=== PATIENT | male | born 1955 | race Caucasian/White ===

== ENCOUNTER 2016-08-04 07:34 | Emergency (ER) | payer OTHER ==
[~2016-08-04] VITALS: Ht 175.3 cm; Wt 89.4 kg
[~2016-08-04 07:34] MED LIST: ALPR-229 PO; AMIO200T33 PO; ASP81EC PO; CLON0.1T PO; FENO130C6 OR; FURO20TA3 PO; GAB300C PO; GLYB2.5T76 PO; HYDR-4072 PO; HYDR12.56 PO; METO-169 PO; OMEP20CA5 PO; PIOG15TA25 PO; POTA10TA51 PO; ZOLP10TA PO
[2016-08-04] MEDS ORDERED: SODIUM CHLORIDE 0.9% 1,000 ML IV ONE ×2 (07:43→09:33)
[2016-08-04 08:05] LABS: Basophils # (auto) 0 uL; Basophils % (auto) 0.2 % (0.0-2.0); Eosinophils # (auto) 0 uL; Eosinophils % (auto) 0.1 % (0.0-7.0); Hematocrit 43.3 % (41.0-53.0); Hemoglobin 14.6 g/dL (13.5-17.5); Lymphocytes # (auto) 0.6 uL; Lymphocytes % (auto) 4.5 % (10.0-50.0); Mean Corpuscular Hemoglobin 29.5 pg (28.0-32.0); Mean Corpuscular Hgb Conc. 33.7 g/dL (32.0-36.0); Mean Corpuscular Volume 87.6 fL (80.0-100.0); Mean Platelet Volume 9.3 fL (7.4-10.4); Monocytes # (auto) 1.1 uL; Monocytes % (auto) 8.8 % (0.0-12.0); Neutrophils # (auto) 11.1 uL; Neutrophils % (auto) 86.4 % (37.0-80.0); Platelet Count (auto) 250 10^3/uL (140-450); Red Cell Distribution Width 14.1 % (11.6-16.0); White Blood Cell 12.8 10^3/uL (4.4-10.8)
[2016-08-04] MEDS ORDERED: HYDROmorphone HCL 2 MG/ML VL IV ONE (08:15)
[2016-08-04] MEDS ORDERED: ONDANSETRON HCL 4 MG/2 ML VIAL IV ONE (08:15)
[2016-08-04 08:39] LABS: BUN/Creatinine Ratio 12.2; Bilirubin, Total 0.7 mg/dL (0.2-1.0); Calcium 8.4 mg/dL (8.5-10.1); Potassium 3.6 mmol/L (3.5-5.1); Total Protein 7.4 g/dL (6.4-8.2)
[2016-08-04] MEDS ORDERED: MAGNESIUM CITRATE SOLUTION 300 ML BTL PO ONE (08:45)
[2016-08-04 10:41] VITALS: BP 182/92
== END 2016-08-04 11:57 | disposition home or self-care (01) ==
LOC: ER 07:34
DX: K85.90 Acute pancreatitis without necrosis or infection, unspecified (principal); M19.90 Unspecified osteoarthritis, unspecified site; I12.9 Hypertensive chronic kidney disease with stage 1 through stage 4 chronic kidney disease, or unspecified chronic kidney disease; E11.22 Type 2 diabetes mellitus with diabetic chronic kidney disease; N18.9 Chronic kidney disease, unspecified; Z95.1 Presence of aortocoronary bypass graft; Z90.49 Acquired absence of other specified parts of digestive tract; Z98.890 Other specified postprocedural states; Z88.0 Allergy status to penicillin; Z86.73 Personal history of transient ischemic attack (TIA), and cerebral infarction without residual deficits; Z88.1 Allergy status to other antibiotic agents; Z79.899 Other long term (current) drug therapy
CPT/HCPCS: 36415; 80053; 82150; 83690; 84484; 85025; 93005; 96361; 96374; 96375; 99285; J1170; J2405; J7030

== ENCOUNTER 2017-01-18 20:09 | Emergency (ER) | payer OTHER ==
[~2017-01-18] VITALS: Ht 175.3 cm; Wt 87.1 kg
[~2017-01-18 20:09] MED LIST changes: -GAB300C PO; +GABA-497 PO; -OMEP20CA5 PO; +OMEP20CA74 PO
[2017-01-18 20:54] LABS: Basophils # (auto) 0.1 uL; Eosinophils # (auto) 0.2 uL; Eosinophils % (auto) 1.9 % (0.0-7.0); Hematocrit 50.7 % (41.0-53.0); Hemoglobin 17.3 g/dL (13.5-17.5); Lymphocytes # (auto) 0.9 uL; Lymphocytes % (auto) 10.6 % (10.0-50.0); Mean Corpuscular Hemoglobin 30.1 pg (28.0-32.0); Mean Corpuscular Hgb Conc. 34.2 g/dL (32.0-36.0); Mean Corpuscular Volume 88.2 fL (80.0-100.0); Mean Platelet Volume 9.3 fL (6.9-10.8); Monocytes # (auto) 0.8 uL; Neutrophils # (auto) 6.6 uL; Neutrophils % (auto) 77.5 % (37.0-80.0); Nucleated Red Blood Cells % 0.1 %; Platelet Count (auto) 206 10^3/uL (140-450); Red Cell Distribution Width 13.8 % (11.8-14.3); White Blood Cell 8.5 10^3/uL (4.4-10.8)
[2017-01-18 21:01] LABS: Urine Bilirubin Negative (Negative); Urine Blood Negative /uL (Negative); Urine Color Yellow (Yellow); Urine Glucose 4+ mg/dL (Normal); Urine Ketone Negative (Negative); Urine Nitrite Negative (Negative); Urine RBC <1 /hpf (0 - 3); Urine Urobilinogen Normal (Negative); Urine pH 5.5 (5.0-8.0)
[2017-01-18 21:07] LABS: Albumin 3.9 g/dL (3.4-5.0); BUN/Creatinine Ratio 14.8; Calcium 9.7 mg/dL (8.5-10.1); Potassium 4.4 mmol/L (3.5-5.1)
[2017-01-18 21:09] LABS: Bilirubin, Total 0.5 mg/dL (0.2-1.0); Total Protein 8.3 g/dL (6.4-8.2)
[2017-01-19] MEDS ORDERED: ONDANSETRON HCL 4 MG/2 ML VIAL IV ONE ×2 (02:15→08:15)
[2017-01-19] MEDS ORDERED: HYDROmorphone HCL 2 MG/ML VL IV ONE ×3 (02:15→08:45)
[2017-01-19 05:36] VITALS: BP 122/67
[2017-01-19] MEDS ORDERED: ALPRAZolam 0.5 MG TAB PO ONE (06:30)
[2017-01-19] MEDS ORDERED: AMI200T (08:28)
[2017-01-19] MEDS ORDERED: CLON0.2T (08:28)
[2017-01-19] MEDS ORDERED: FENO134C (08:28)
[2017-01-19] MEDS ORDERED: ZOLP10TA6 (08:28)
[2017-01-19] MEDS ORDERED: PIOG15TA46 (08:28)
[2017-01-19] MEDS ORDERED: HYDROCO/APAP (08:28)
[2017-01-19] MEDS ORDERED: LEVO25TA6 (08:28)
[2017-01-19] MEDS ORDERED: ASPI81TA10 (08:28)
[2017-01-19] MEDS ORDERED: FUR20T (08:28)
[2017-01-19] MEDS ORDERED: POTA8TAB15 (08:28)
[2017-01-19] MEDS ORDERED: [UNRECOGNIZED DRUG - CODE] (08:28)
[2017-01-19] MEDS ORDERED: AMLO5TAB2 (08:28)
[2017-01-19] MEDS ORDERED: SODIUM CHLORIDE 0.9% 2,000 ML IV ONE (08:45)
== END 2017-01-19 12:07 | disposition home or self-care (01) ==
LOC: ER 20:35
DX: K85.90 Acute pancreatitis without necrosis or infection, unspecified (principal); R07.89 Other chest pain; R11.2 Nausea with vomiting, unspecified; I13.0 Hypertensive heart and chronic kidney disease with heart failure and stage 1 through stage 4 chronic kidney disease, or unspecified chronic kidney disease; E11.22 Type 2 diabetes mellitus with diabetic chronic kidney disease; N18.9 Chronic kidney disease, unspecified; Z79.4 Long term (current) use of insulin; M10.9 Gout, unspecified; I25.10 Atherosclerotic heart disease of native coronary artery without angina pectoris; Z95.1 Presence of aortocoronary bypass graft; Z90.49 Acquired absence of other specified parts of digestive tract; Z79.82 Long term (current) use of aspirin; Z88.0 Allergy status to penicillin
CPT/HCPCS: 36415; 74176; 76705; 80053; 81001; 82150; 82962; 83605; 83690; 85025; 96361; 96374; 96375; 96376; 99285; J1170; J2405; J7030

== ENCOUNTER 2017-09-05 03:12 | Emergency (ER) | payer OTHER ==
[~2017-09-05] VITALS: Ht 175.3 cm; Wt 85.7 kg
[~2017-09-05 03:12] MED LIST changes: +AMI200T; +AMLO5TAB2; +ASPI81TA10; +CLON0.2T; +FENO134C; +FUR20T; -GABA-497 PO; +GABA300C11 PO; -GLYB2.5T76 PO; +GLYB2.5T8 PO; +HYDROCO/APAP; +LEVO25TA6; +PIOG15TA46; +POTA8TAB15; +ZOLP10TA6; +[UNRECOGNIZED DRUG - CODE]
[2017-09-05] MEDS ORDERED: cloNIDine HCL 0.1 MG TAB ONE (03:34)
[2017-09-05] MEDS ORDERED: cloNIDine HCL 0.1 MG TAB PO ONE (03:45)
[2017-09-05 04:21] LABS: Hematocrit 48.1 % (41.0-53.0); Hemoglobin 16.4 g/dL (13.5-17.5); Mean Corpuscular Hemoglobin 30.2 pg (28.0-32.0); Mean Corpuscular Hgb Conc. 34.1 g/dL (32.0-36.0); Mean Corpuscular Volume 88.5 fL (80.0-100.0); Platelet Count (auto) 228 10^3/uL (140-450); Red Blood Cells 5.43 10^6/uL (4.5-5.90); Red Cell Distribution Width 13.6 % (11.8-14.3); White Blood Cell 7.6 10^3/uL (4.4-10.8)
[2017-09-05 04:25] LABS: Basophils % (manual) 0 (0.0-2.0); Blast Cells 0; Promyelocytes % 0; Reactive Lymphocytes 0
[2017-09-05 04:41] LABS: Alanine Aminotransferase 23 U/L (16-61); Albumin 3.4 g/dL (3.4-5.0); Alkaline Phosphatase 27 U/L (45-117); Anion Gap 12 (5-15); Aspartate Aminotransferase 8 U/L (15-37); Bilirubin, Total 0.8 mg/dL (0.2-1.0); Blood Urea Nitrogen 36 mg/dL (7-18); Calcium 9.2 mg/dL (8.5-10.1); Carbon Dioxide 27 mmol/L (21-32); Chloride 96 mmol/L (98-107); GFR African American 44 mL/min; GFR Non-African American 36 mL/min; Glucose 268 mg/dL (74-106); Lipase 471 U/L (73-393); Potassium 4.3 mmol/L (3.5-5.1); Sodium 135 mmol/L (136-145); Total Protein 7.1 g/dL (6.4-8.2)
[2017-09-05 04:45] LABS: Band Neutrophils % (manual) 1; Eosinophils % (manual) 1 (0-7); Lymphocytes % (manual) 33 (10.0-50.0); Metamyelocytes % 3; Monocytes % (manual) 5 (0-12); Myelocytes % 1
[2017-09-05] MEDS ORDERED: MORPHINE SULFATE 4 MG/ML SYR/VIAL IV ONE ×2 (09:15→14:30)
[2017-09-05] MEDS ORDERED: METOCLOPRAMIDE HCL 5MG/ml INJ 2ml VIAL IV ONE (09:15)
[2017-09-05 13:38] VITALS: BP 140/87
[2017-09-05] MEDS ORDERED: MORPHINE SULFATE 4 MG/ML SYR/VIAL ONE (14:28)
== END 2017-09-05 14:38 | disposition home or self-care (01) ==
LOC: ER 03:14
DX: K85.90 Acute pancreatitis without necrosis or infection, unspecified (principal); E87.1 Hypo-osmolality and hyponatremia; E87.8 Other disorders of electrolyte and fluid balance, not elsewhere classified; I10 Essential (primary) hypertension; E11.9 Type 2 diabetes mellitus without complications; M10.9 Gout, unspecified; M19.90 Unspecified osteoarthritis, unspecified site; Z90.49 Acquired absence of other specified parts of digestive tract; Z95.1 Presence of aortocoronary bypass graft; Z79.899 Other long term (current) drug therapy; Z88.0 Allergy status to penicillin; Z88.1 Allergy status to other antibiotic agents
CPT/HCPCS: 36415; 74176; 80053; 80320; 83690; 84484; 85007; 85027; 93005; 94761; 96374; 96375; 96376; 99285; J2270; J2765